=== PATIENT | male | born 1980 | race Caucasian/White ===

== ENCOUNTER 2019-07-29 14:03 | Emergency (ER) | payer MEDICAID ==
[~2019-07-29] VITALS: Ht 165.1 cm; Wt 120.0 kg
[~2019-07-29 14:03] MED LIST: IBUP-1542 PO; TRAM50TA2 PO
[2019-07-29 14:05] VITALS: BP 140/77; PULSE 65; RESP 18; Ht 165.1 cm; Wt 120.0 kg
[2019-07-29] MEDS ORDERED: KETOROLAC 30 MG INJ IM STA (15:37)
== END 2019-07-29 16:49 | disposition home or self-care (01) ==
LOC: FTE 14:03
DX: M25.561 Pain in right knee (principal)
CPT/HCPCS: 73562; 96372; J1885; Z7502